=== PATIENT | female | born 1955 | race Caucasian/White ===

== ENCOUNTER → 2017-12-26 | Outpatient (CLI) | payer BC ==
--- NOTE | 2018-01-03 09:49 | RAD ---
DATE: 12/26/2017 EXAM: MAMMO [place] SCREENING BILATERAL HISTORY: Routine screening COMPARISON: 05/26/2016, 11/29/2012, 09/30/2011 This study was interpreted with the benefit of Computerized Aided Detection (CAD). Breast Density: HETERO The breast parenchyma is heterogenously dense, which could reduce sensitivity of mammography. Breast parenchyma level C. FINDINGS: 2-D and 3-D tomosynthesis imaging was performed in CC and MLO projections. No spiculated mass or architectural distortion is evident. There is a tiny smooth nodule in the retroareolar region of the right breast as best seen on right oblique tomosynthesis images #31. This was probably present on the 05/26/2016 outside study, however, less well seen due to technical differences. No other new or enlarging breast density is seen. Benign type calcifications in the right breast appear unchanged since 05/26/2016. No suspicious microcalcifications have developed. IMPRESSION: Small right retroareolar nodule. Sonographic evaluation is suggested. BI-RADS CATEGORY: 0 INCOMPLETE: NEEDS ADDITIONAL IMAGING EVALUATION AND/OR PRIOR MAMMOGRAMS FOR COMPARISON. RECOMMENDED FOLLOW-UP: ADD ADDITIONAL IMAGING PQRS compliance statement: Patient information was entered into a reminder system with a target due date for the next mammogram. Mammography is a sensitive method for finding small breast cancers, but it does not detect them all and is not a substitute for careful clinical examination. A negative mammogram does not negate a clinically suspicious finding and should not result in delay in biopsying a clinically suspicious abnormality. "Our facility is accredited by the [employer] Mammography Program."
== END | disposition home or self-care (01) ==
LOC: MAMMO 10:16
PROVIDERS: ATTEND Nurse Practitioner Family
DX: Z12.31 Encounter for screening mammogram for malignant neoplasm of breast (principal)
CPT/HCPCS: 77063; 77067

== ENCOUNTER → 2018-01-12 | Outpatient (CLI) | payer BC ==
--- NOTE | 2018-01-12 15:51 | RAD ---
Right breast ultrasound, 01/12/2018: HISTORY: Abnormal screening mammograms Screening mammograms demonstrated heterogeneous dense fibroglandular tissue in the retroareolar region. A tiny 3 mm retroareolar nodule was noted on the 3-D mammograms. Today we performed a targeted ultrasound exam of the retroareolar region. There is a 4 x 5 x 9 mm anechoic nodule with smooth margins and posterior acoustic enhancement in the retroareolar region. The appearance is that of a simple cyst. It appears larger than the mammographic abnormality and is likely a separate lesion. At the 10:00 location approximately 2 cm from the nipple a 6 x 7 x 8 mm hypoechoic mass was identified. Some of its margins are poorly defined. There is posterior acoustic shadowing. This has the appearance of a solid nodule. No definite mammographic correlate was seen within the dense fibroglandular tissues. No other mass or unusual fluid collection was identified. IMPRESSION: 1. Right retroareolar cyst. 2. No definite sonographic correlate for the tiny retroareolar nodule seen on the screening mammograms was delineated. Mammographic surveillance is suggested. 3. Solid-appearing breast nodule at the 10:00 location as described above. Ultrasound-guided biopsy of this nodule is suggested for further evaluation. Note: The cytometry technologist notified the patient of these findings at the time of the exam. The patient is aware of the recommendation for biopsy and will follow-up with the ordering provider. BI-RADS 4-suspicious abnormality Electronically signed by: Wu Yung MD (01/12/2018 3:48 PM) [facility]
== END | disposition home or self-care (01) ==
LOC: US 14:47
PROVIDERS: ATTEND Nurse Practitioner Family
DX: N63.13 Unspecified lump in the right breast, lower outer quadrant (principal); N60.01 Solitary cyst of right breast
CPT/HCPCS: 76641

== ENCOUNTER → 2020-01-28 | Outpatient (CLI) | payer BC ==
--- NOTE | 2020-01-29 10:51 | RAD ---
DATE: 01/28/2020 9:01 AM EXAM: MAMMO [place] SCREENING BILATERAL HISTORY: Screening COMPARISON: 12/26/2017 Bilateral CC and MLO views of the breasts were performed. Bilateral breast tomosynthesis was performed in CC and MLO projections. This study was interpreted with the benefit of Computerized Aided Detection (CAD). FINDINGS: Breast Density: HETERO The breast parenchyma Is heterogeneously dense, which could reduce sensitivity of mammography. Breast parenchyma level C No suspicious masses, microcalcifications or architectural distortion is present to suggest malignancy in either breast. The visualized axillae are unremarkable. IMPRESSION: No mammographic evidence of malignancy. BI-RADS CATEGORY: 1 NEGATIVE RECOMMENDED FOLLOW-UP: 12M 12 MONTH FOLLOW-UP Annual screening mammography is recommended, unless clinically indicated sooner based on symptoms or change in physical exam. PQRS compliance statement: Patient information was entered into a reminder system with a target due date for the next mammogram. Mammography is a sensitive method for finding small breast cancers, but it does not detect them all and is not a substitute for careful clinical examination. A negative mammogram does not negate a clinically suspicious finding and should not result in delay in biopsying a clinically suspicious abnormality. "Our facility is accredited by the [employer] Mammography Program."
== END ==
LOC: MAMMO 08:50
PROVIDERS: ATTEND Family Medicine
DX: Z12.31 Encounter for screening mammogram for malignant neoplasm of breast (principal)
CPT/HCPCS: 77063; 77067